=== PATIENT | female | born 1960 | race Caucasian/White ===

== ENCOUNTER 2017-03-02 16:50 | Emergency (ER) | payer OTHER ==
[~2017-03-02 16:50] MED LIST: BENICAR HCT 40-1 TA1 PO; CEFTRIAXONE2 GM IV; CYANOCOBALAM1000 MCG PO; DEXILANT60 MG PO; EFFEXOR PO; FLAGYL PO; HCTZ; KCL PO; LEXAPRO; LORTAB 7.5-5001 TAB PO; LOSARTAN-HCTZ1 EAC3 PO; METOPROLOL SUCC25 MG PO; MULTI-VITAMIN1 EAC1 PO; NORCO1 TAB 10/3 PO; PHENERGAN25 M1 PO; SYNTHROID; SYNTHROID PO; ZOFRAN ODT4 MG PO
[2017-03-02] MEDS ORDERED: AMLODIPINE BESY10 MG (17:06)
[2017-03-02] MEDS ORDERED: PROTONIX (17:06)
[2017-03-02] MEDS ORDERED: ADRENOID CAPSU1 EACH (17:06)
[2017-03-02] MEDS ORDERED: ZOFRAN ODT4 M1 (17:07)
[2017-03-02] MEDS ORDERED: ULTRAM (17:07)
[2017-03-02] MEDS ORDERED: FLEXERIL10 MG (17:07)
[2017-03-02] MEDS ORDERED: POTASSIUM CHLO10 MEQ (17:08)
== END 2017-03-02 17:35 | disposition home or self-care (01) ==
LOC: SED 16:50
DX: S91.111A Laceration without foreign body of right great toe without damage to nail, initial encounter (principal); Z23 Encounter for immunization; E03.9 Hypothyroidism, unspecified; Z88.8 Allergy status to other drugs, medicaments and biological substances; Z79.899 Other long term (current) drug therapy; W22.8XXA Striking against or struck by other objects, initial encounter; Z88.5 Allergy status to narcotic agent; Y93.01 Activity, walking, marching and hiking
CPT/HCPCS: 90471; 90715; 99283